=== PATIENT | female | born 1995 | race Asian ===

== ENCOUNTER 2018-02-28 21:31 | Emergency (ER) | payer OTHER ==
[~2018-02-28] VITALS: Ht 160 cm; Wt 46.0 kg
[2018-02-28 21:39] VITALS: TEMP 36.8; O2SAT 100; Ht 160 cm; Wt 46.0 kg
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
[2018-02-28 22:21] VITALS: BP 120/67; PULSE 95; O2SAT 100
== END 2018-02-28 22:22 | disposition home or self-care (01) ==
LOC: EDUNIT# 21:34 → EDBD 21:35 → C.EDB 21:38
DX: T14.8XXA Other injury of unspecified body region, initial encounter (principal); V99.XXXA Unspecified transport accident, initial encounter